=== PATIENT | male | born 1970 | race Caucasian/White ===

== ENCOUNTER 2023-12-10 22:34 | Inpatient (IN) | payer OTHER, SELFPAY ==
[2023-12-10] VITALS (9 sets, daily range): BP systolic 121–152; BP diastolic 65–90; BMI 32.5
[2023-12-10 14:43] LABS: % Basophils 0.9 % (0-2); % Immature Granulocytes 0.3 % (0-0.5); % Lymphocytes 19.6 % (20.5-51.1); % Monocytes 4.4 % (1.7-9.3); % Neutrophils 74.8 % (42.2-75.2); Absolute Basophils 0.1 10^3/uL (0-0.2); Absolute Lymphocytes 2.5 10^3/uL (1.2-3.4); Absolute Monocytes 0.6 10^3/uL (0.1-0.6); Absolute Neutrophils 9.6 10^3/uL (1.4-6.5); Hemoglobin 17.7 g/dL (13.0-18.0); Mean Corp Hgb Conc. 33.4 g/dL (33.0-37.0); Mean Corpuscular Hgb 28.2 pg (27.0-31.0); Mean Corpuscular Volume 84.5 fL (80.0-94.0); Mean Platelet Volume 10.6 fL (7.4-10.4); Nucleated Red Blood Cells % 0 % (-); Platelet Count 298 10^3/uL (130-400); Red Blood Cell Count 6.27 10^6/uL (4.70-6.10); Red Cell Dist. Width 13.6 % (11.5-14.5); White Blood Cell Count 12.9 10^3/uL (4.8-10.8)
[2023-12-10 14:59] LABS: ALT (SGPT) 34 U/L (0-50); AST (SGOT) 41 U/L (17-59); Albumin 5.3 g/dl (3.5-5.0); Alkaline Phosphatase 109 U/L (38-126); Blood Urea Nitrogen 15 mg/dl (9-20); Calcium 9.7 mg/dl (8.4-10.2); Carbon Dioxide 17 mmol/L (22-30); Chloride 105 mmol/L (98-107); Glucose 88 mg/dl (70-99); Sodium 143 mmol/L (135-145); Total Bilirubin 0.6 mg/dl (0.2-1.3); Total Protein 8.2 g/dl (6.3-8.2); eGFR > 60.00
[2023-12-10 15:00] LABS: Potassium 4.3 mmol/L (3.5-5.1)
[2023-12-10 15:08] LABS: Alcohol 309 mg/dl
[2023-12-10] MEDS: ATIVAN 2 MG IV (15:22)
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
[2023-12-10] MEDS: NSS 1000 IV ×2 (19:05→23:55)
[2023-12-10] MEDS: ATIVAN 1 MG PO (20:18)
--- NOTE | 2023-12-10 22:04 | HPS.HSE ---
Addendum entered and electronically signed by Rodrigo Deluna MD 12/11/23 00:30:
Laboratory Tests
12/10/23
22:46
B-Hydroxybutyrate 1.36 H
Likely alcohol related ketoacidosis woth associated AG MA
- IVF
Original Note:
Family Physician
-
Family Physician: * NONE
Chief Complaint
-
AMS, ETOH intoxication
History of Present Illness
HPI
53M HX ETOH user, claimed sober for last 4 yrs pw recent binge drinking.
He was BiB EMS from the Hotel
Hotel staff found him unconscious , surrounded by many empty bottles of liquir in the room
EMS was called and the patient is running naked through the hallways
At ER
He is lert but refusing to answer questions.
Nursing staff was able to speak with patient's who is currently in [place], states that he has been sober for approximately 40 years, uncertain how long this alcohol binge has been ongoing.
At ER he received:
Lorazepam 2mg + 2mg + 1mg + 1mg
IV NS, IV Thiamine and D5NS
and he is still tachycardic
Per patient and Spouse on my interview
He came to [facility] from [place] for business trip
Arrived on 12/08/23 and starts drinking for no apparent reason
He has been sober for last 40 yrs
He missed the flight today
Medical History
Past Medical History
Past Medical History: Reports Other (ETOH use disorder )
Past Surgical History: Reports Other
Social History
Alcohol: Binge drinker
Family History
Family History: Not pertinent
Allergies / Home Medications
Allergies reflects when Allergies were last updated in Office Center.
Home Medications with original date entered in Office Center
Allergy/Medication List:
Allergies
Allergy/AdvReac Type Severity Reaction Status Date / Time
No Known Allergies Allergy Unverified 12/10/23 15:52
If medication reconciliation has not been performed, why?: Medication List N/A
Review of Systems
-
Constitutional: Reports No Symptoms
EENT: Reports No Symptoms
Respiratory: Reports No Symptoms
Cardiac: Reports No Symptoms
Abdomen/GI: Reports No Symptoms
: Reports No Symptoms
Musculoskeletal: Reports No Symptoms
Skin: Reports No Symptoms
Neurological: Reports No Symptoms
Endocrine: Reports No Symptoms
Hematologic/Lymphatic: Reports No Symptoms
Psych: Reports See HPI
Physical Exam
Vital Signs
Vital Signs
Temp Pulse Resp BP Pulse Ox
99.0 F 118 21 121/65 97
12/10/23 14:20 12/10/23 21:45 12/10/23 21:45 12/10/23 21:48 12/10/23 17:15
Physical Exam
General: Well Developed, Well Nourished, No Apparent Distress, Comfortable and Conversant; No Appears in Distress
HEENT: NormoCephalic, Anicteric and Moist mucous membranes (dry OM )
Respiratory: Clear; No Wheezes, Rales or Rhonchi
Cardiac: S1/S2, Regular Rhythm and Tachycardia; No Murmur
Breast: Deferred by me
GI: Soft, Non Tender, Non Distended and Normal Bowel Sounds
Rectal: Deferred by Provider
Genito-urinary: Deferred by me
Musculoskeletal: No Cyanosis and No Edema
Neuro: AO x 3
Psych: Calm; No Confused or Agitated
Laboratory Results
-
12/10/23 14:37
12/10/23 14:37
Laboratory Results
Total Bilirubin 0.6 mg/dl (0.2-1.3) 12/10/23 14:37
AST 41 U/L (17-59) 12/10/23 14:37
ALT 34 U/L (0-50) 12/10/23 14:37
Alkaline Phosphatase 109 U/L (38-126) 12/10/23 14:37
Data Reviewed
-
Lab Data: Labs Reviewed by me
Impression/Plan
-
Reviewed VS: afebrile Tachycardic 120s BP 120/65- 140/90 RR21 POx hi 90s
Data
WCC 12.9
Na 143 Cl 105 CO2 17 Alb 5.3
AG MA 21
Pending BHB
ETOH 309
NO prior hospitalist admission:
Rx list not available
ASSESSMENT & PLAN
Acute ETOH intoxication with acute behavioral disruption
Binge ETOH relapse drinking of unclear chronicity
Associate tachycardia concerning for acute ETOH WDS vs. Non adherence with BB during binge ETOH and BB withdrawal
Associated AG MA
nl LFTs
Reported sober for 40 yrs per spouse
- check BHB
- Acute ETOH WD protocol with IV Ativan
- If he evolves into full DTs - will initiate PHB protocol
- Resume Metoprolol tartrate 12.5mg BID and f/u HR
- Psych consult
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
He came to [facility] for business trip on Wednesday12/06/23
Arrived on 12/08/23 and starts drinking for no apparent reason
He has been sober for last 40 yrs
He missed the flight today
Essential HTN on Metoprolol - dose uncertain - will initiate 12.5 mg BOD
Reported HX severely hi calcium score suspected CAD
No prior Card cath
No prior FL
No prior stent HX
- on DAPL
Depression on Escitalopram 10mg daily
- cont Escitalopram
DVT Px: LMWH
Code: Full
IP TLM
[2023-12-10 22:45] LABS: Glucose - Point of Care 100 mg/dl (70-99)
[2023-12-10] MEDS: D5/0.9% SODIUM CHLORIDE 500 IV (22:54)
[2023-12-10] MEDS: ATIVAN 1 MG IV (22:58)
[2023-12-10] MEDS: THIAMINE INJECTION 100 MG IV (23:02)
--- NOTE | 2023-12-10 23:16 | EDRN ---
Lynn [phone]
[2023-12-10 23:17] LABS: B-Hydroxybutyrate 1.36 mmol/L (0.02-0.27)
--- NOTE | 2023-12-10 23:20 | PTCARENOTE ---
patient arrived to [facility] from ED via stretcher. patient is calm and cooperative, oriented to self and place but appears detached from time and situation. drowsy and falling asleep quickly during conversation although easily arousable. patient
states they feel shaky but otherwise OK. MSAS protocol in place. patient assisted to bed and oriented to room and call palm use. patient placed on tele monitor and IVF infusing per order. care on going.
[2023-12-10] MEDS: LOPRESSOR 12.5 MG PO (23:49)
[2023-12-10 23:57] LABS: GGTP 48 U/L (15-73)
[2023-12-11] MEDS: ATIVAN 1 MG PO ×6 (00:49→11:39)
[2023-12-11 02:59] LABS: Amphetamines Negative (Negative); Barbiturates Negative (Negative); Benzodiazepines Positive (Negative); Buprenorphine Negative (Negative); Cocaine Negative (Negative); Marijuana Positive (Negative); Methadone Negative (Negative); Methamphetamines Negative (Negative); Opiates Negative (Negative); Phencyclidine Negative (Negative); Tricyclic Antidepressants Negative (Negative)
[2023-12-11 03:06] VITALS: BP 129/87
[2023-12-11 03:53] LABS: Fentanyl, Urine Negative (Negative)
[2023-12-11 07:15] VITALS: BP 130/85
[2023-12-11] MEDS: LEXAPRO 10 MG PO (07:32)
[2023-12-11] MEDS: THIAMINE INJECTION 200 MG IV ×3 (07:34→23:29)
[2023-12-11] MEDS: PROTONIX 20 MG PO (07:35)
[2023-12-11] MEDS: PLAVIX 75 MG PO (07:35)
[2023-12-11] MEDS: LOW STRENGTH ASPIRIN 81 MG PO (07:35)
[2023-12-11] MEDS: FOLVITE 1 MG PO (07:49)
[2023-12-11] MEDS: LOPRESSOR 12.5 MG PO ×2 (07:49→20:45)
--- NOTE | 2023-12-11 08:09 | W.PN.HOSP.TC ---
Today's Communication/Plan
-
see bold
Assessment / Plan
Assessment / Plan
Gen: NAD, AAOx3.
Eyes: EOMI, PERRLA, no scleral icterus.
Neck: supple.
CV: tachycardic, reg rhythm, +S1/S2, no m/r/g.
Resp: CTAB, no rales, wheezes, or rhonchi.
Abd: +BS, soft, NT, ND
Skin: No rashes.
Neuro: CN 2-12 intact, non-focal, mild tremor.
Psych: appears moderately anxious
Acute ETOH intoxication with acute behavioral disruption, now with DTs:
-with AG met acidosis like due to alcoholic ketoacidosis
-cont IVFs/thiamine/folate, MSAS protocol. Has received multiple doses of Ativan.
-start phenobarbital taper for acute DTs
-tachycardia improving
-check CMP
Other problems:
Obesity due to excess calories
Essential HTN: cont BB
Suspected CAD based on coronary calcium score: No prior cath/[place]/stent. Cont ASA/Plavix
Depression: cont Lexapro
FULL/Lovenox
Total time spent on today's encounter was 50 minutes which included time spent in counseling the patient/family regarding diagnosis and treatment plan as listed above, goals of care, and symptom management. Case was discussed with nursing staff,
specialists, and care coordinators/case management. All labs and imaging personally reviewed by me. Remainder the time spent in detailed review of previous records, lab data, imaging, and other medical provider documentation.
Anticipated Discharge: > 48 hours
Subjective/Interval History
-
Date of Service: December 11, 2023
Pt reports anxiety/tremors/diaphoresis/VH.
Objective Data
-
Vital Signs:
Vital Signs
Temp Pulse Resp BP Pulse Ox
98.0 F 99 18 130/85 99
12/11/23 07:15 04/13/24 07:49 12/11/23 07:15 12/11/23 07:49 12/11/23 07:15
I&O
12/10/23 12/11/23 12/12/23
06:59 06:59 06:59
Intake Total 1680 / 1680
Output Total 410 / 410
Balance 1270 / 1270
[2023-12-11] MEDS: NSS 1000 IV ×3 (09:35→22:54)
[2023-12-11] MEDS: LUMINAL 97.2000000000000028 MG PO ×3 (10:03→21:05)
[2023-12-11 10:24] LABS: ALT (SGPT) 37 U/L (0-50); AST (SGOT) 52 U/L (17-59); Albumin 4.5 g/dl (3.5-5.0); Alkaline Phosphatase 82 U/L (38-126); Blood Urea Nitrogen 9 mg/dl (9-20); Calcium 9.4 mg/dl (8.4-10.2); Carbon Dioxide 23 mmol/L (22-30); Chloride 101 mmol/L (98-107); Estimated Creatinine Clearance > 125 ml/min; Glucose 124 mg/dl (70-99); Potassium 4.3 mmol/L (3.5-5.1); Sodium 130 mmol/L (135-145); Total Bilirubin 1.9 mg/dl (0.2-1.3); Total Protein 7.1 g/dl (6.3-8.2); eGFR > 60.00
[2023-12-11 11:12] VITALS: BP 148/93
--- NOTE | 2023-12-11 13:15 | CM ---
business project manager reviewed patient's chart and met with patient. patient reports that he was on a business trip in area staying at a local hotel, patient has been clean and sober for many years however patient admits to excessive alcohol intake, patient
does not feel in he needs any intervention and plans on following with supports and options when he returns to home, back to [place], patient lives with spouse in a 2 story home, patient is independent with adl's and ambulation, no dme, patient
drives, patient has a prescription plan and uses [facility], patient was admitted as self pay however patient reports he has [facility] , insurance ID # provided to admissions.
Plan; Patient to return to home with his spouse, and follow up with treatment closer to home if necessary.
[2023-12-11 14:51] VITALS: BP 135/88
[2023-12-11] MEDS: LOVENOX 40 MG SC (17:03)
[2023-12-11 19:00] VITALS: BP 146/91
[2023-12-11 23:26] VITALS: BP 136/83
[2023-12-12] VITALS (7 sets, daily range): BP systolic 135–165; BP diastolic 74–101
[2023-12-12] MEDS: NSS 1000 IV (05:16)
[2023-12-12] MEDS: ATIVAN 1 MG PO ×2 (06:12→18:40)
[2023-12-12] MEDS: COMPAZINE 5 MG IV (07:05)
[2023-12-12] MEDS: PROTONIX 20 MG PO (07:42)
[2023-12-12] MEDS: THIAMINE INJECTION 200 MG IV ×3 (07:42→23:51)
[2023-12-12] MEDS: LEXAPRO 10 MG PO (07:42)
[2023-12-12] MEDS: LOW STRENGTH ASPIRIN 81 MG PO (07:42)
[2023-12-12] MEDS: LUMINAL 97.2000000000000028 MG PO (07:42)
[2023-12-12] MEDS: PLAVIX 75 MG PO (07:42)
[2023-12-12] MEDS: FOLVITE 1 MG PO (07:43)
[2023-12-12] MEDS: LOPRESSOR 12.5 MG PO ×2 (08:13→20:00)
--- NOTE | 2023-12-12 09:12 | CM ---
Patient seen at bedside, patient indicated he had no needs for discharge. CM will continue to follow for discharge planning needs.
Plan; home with no needs at patient request
--- NOTE | 2023-12-12 10:59 | W.PN.HOSP.TC ---
Today's Communication/Plan
-
Phenobarbital taper to be cut short as patient dramatically improved and he does not drink every day.
await Labs
Assessment / Plan
Assessment / Plan
CVS: S1-S2 normal
Chest: CTA B/L
Abdomen: Soft, NT / Bowel sounds present
Extremities: No edema, normal pulses
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
Patient states that he was on a business trip and had alcohol intoxication presents to thing to do. He was sober for the past 4 years and planning to remain same. He does not use alcohol every day therefore this event was an isolated 1.
#Acute ETOH intoxication with acute behavioral disruption, no signs of active DTs at present
-with AG met acidosis like due to alcoholic ketoacidosis
-cont IVFs/thiamine/folate, MSAS protocol. Has received multiple doses of Ativan.
-Continue phenobarbital taper, but I would cannot shorten the course of the taper.
-tachycardia improved
-check CMP-Pending
# Hyponatremia check serum and urine osmolality serum cortisol TSH
Urine sodium
#Obesity due to excess calories
#Essential HTN: cont BB
#Suspected CAD based on coronary calcium score: No prior cath/AK/stent. Cont ASA/Plavix
#Depression: cont Lexapro
# Urine drug screen with marijuana
#FULL CODE
# DVT prophylaxis-Lovenox
Anticipated Discharge: 24 - 48 hours
Subjective/Interval History
-
Date of Service: December 12, 2023
Objective Data
-
Labs:
Laboratory Results
12/12/23
09:35
Sodium Pending
Potassium Pending
Chloride Pending
Carbon Dioxide Pending
BUN Pending
Creatinine Pending
Glucose Pending
Calcium Pending
Total Bilirubin Pending
AST Pending
ALT Pending
Alkaline Phosphatase Pending
Vital Signs:
Vital Signs
Temp Pulse Resp BP Pulse Ox
97.2 F 69 18 147/86 99
12/12/23 08:02 12/12/23 08:13 12/12/23 08:02 12/12/23 08:13 12/12/23 08:02
I&O
12/11/23 12/12/23 12/13/23
06:59 06:59 06:59
Intake Total 1680 / 1680 8500 / 8500
Output Total 410 / 410 6125 / 6125
Balance 1270 / 1270 2375 / 2375
[2023-12-12 11:13] LABS: ALT (SGPT) 46 U/L (0-50); AST (SGOT) 57 U/L (17-59); Alkaline Phosphatase 77 U/L (38-126); Blood Urea Nitrogen 3 mg/dl (9-20); Calcium 9.3 mg/dl (8.4-10.2); Carbon Dioxide 26 mmol/L (22-30); Chloride 101 mmol/L (98-107); Estimated Creatinine Clearance > 125 ml/min; Glucose 107 mg/dl (70-99); Potassium 3.7 mmol/L (3.5-5.1); Sodium 132 mmol/L (135-145); Total Bilirubin 1.7 mg/dl (0.2-1.3); Total Protein 6.4 g/dl (6.3-8.2); eGFR > 60.00
[2023-12-12 11:44] LABS: Magnesium 1.8 mg/dl (1.6-2.3)
[2023-12-12 12:32] LABS: Osmolality Urine 149 mOsm/kg (300-900)
[2023-12-12 12:39] LABS: Urine Sodium 57 mmol/L (30-90)
[2023-12-12 13:45] LABS: Hematocrit 40.6 % (39.0-52.0); Hemoglobin 15.1 g/dL (13.0-18.0); Mean Corp Hgb Conc. 37.2 g/dL (33.0-37.0); Mean Corpuscular Hgb 29.8 pg (27.0-31.0); Mean Corpuscular Volume 80.2 fL (80.0-94.0); Red Blood Cell Count 5.06 10^6/uL (4.70-6.10); Red Cell Dist. Width 12.8 % (11.5-14.5); White Blood Cell Count 4.7 10^3/uL (4.8-10.8)
[2023-12-12 13:57] LABS: Mean Platelet Volume 11.2 fL (7.4-10.4); Platelet Count 171 10^3/uL (130-400)
[2023-12-12 14:06] LABS: Osmolality Serum 279 mOsm/kg (275-300)
[2023-12-12 15:12] LABS: Cortisol, Random 14.1 ug/dl; TSH 1.21 uIU/ml (0.47-4.68)
[2023-12-12] MEDS: LUMINAL 64.7999999999999972 MG PO ×2 (15:34→22:39)
[2023-12-12] MEDS: LOVENOX 40 MG SC (16:58)
[2023-12-12] MEDS: MELATONIN 5 MG PO (22:39)
[2023-12-13 02:32] VITALS: BP 135/91
--- NOTE | 2023-12-13 06:29 | W.PN.HOSP.TC ---
Today's Communication/Plan
-
cont phenobarbital taper MSAS protocol
possible discharge tomorrow.
Assessment / Plan
Assessment / Plan
Physical Exam
CVS: S1-S2 normal
Chest: CTA B/L
Abdomen: Soft, NT / Bowel sounds present
Extremities: No edema, normal pulses
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
Patient states that he was on a business trip and had alcohol intoxication presents to thing to do. He was sober for the past 4 years and planning to remain same. He does not use alcohol every day therefore this event was an isolated 1.
#Acute ETOH intoxication with acute behavioral disruption, no signs of active DTs at present
-with AG met acidosis like due to alcoholic ketoacidosis, since resolved
-cont MSAS protocol
-cont phenobarbital taper as scheduled, then monitor off
-tachycardia improved
# Hyponatremia Mild stable
#Obesity due to excess calories
#Essential HTN: cont BB
#Suspected CAD based on coronary calcium score: No prior cath/[place]/stent. Cont ASA/Plavix
#Depression: cont Lexapro
# Urine drug screen with marijuana
#FULL CODE
# DVT prophylaxis-Lovenox
I spent a total of 50 minutes with the patient or on the floor. More than 50% of this time involved counseling and coordination of care.
Anticipated Discharge: Within 24 hours
Subjective/Interval History
-
Date of Service: December 13, 2023
Reports intermittent headaches nausea anxious sweaty palms. Tremors since improved
Objective Data
-
Vital Signs:
Vital Signs
Temp Pulse Resp BP Pulse Ox
97.8 F 83 16 135/91 97
12/13/23 02:32 12/13/23 02:32 12/13/23 02:32 12/13/23 02:32 12/13/23 02:32
I&O
12/11/23 12/12/23 12/13/23
06:59 06:59 06:59
Intake Total 1680 / 1680 8500 / 8500 3142 / 3142
Output Total 410 / 410 6125 / 6125 650 / 650
Balance 1270 / 1270 2375 / 2375 2492 / 2492
[2023-12-13 07:19] VITALS: BP 139/95
[2023-12-13] MEDS: LOPRESSOR 12.5 MG PO ×2 (08:16→19:57)
[2023-12-13] MEDS: LUMINAL 32.3999999999999986 MG PO ×3 (08:17→21:53)
[2023-12-13] MEDS: PROTONIX 20 MG PO (08:17)
[2023-12-13] MEDS: LEXAPRO 10 MG PO (08:17)
[2023-12-13] MEDS: PLAVIX 75 MG PO (08:17)
[2023-12-13] MEDS: FOLVITE 1 MG PO (08:17)
[2023-12-13] MEDS: LOW STRENGTH ASPIRIN 81 MG PO (08:18)
[2023-12-13] MEDS: THIAMINE INJECTION 200 MG IV ×3 (08:18→23:42)
[2023-12-13] MEDS: FLUSH (NSS) 1 FLUSH IV (08:19)
[2023-12-13 11:41] VITALS: BP 127/88
--- NOTE | 2023-12-13 12:57 | PN.CDI ---
CDI
- -
CDI:
Physician Documentation Request
Admit Date: 12/10/23 22:34
Dear Doctor Basilio,
Please review the following and provide your response in the progress notes.
Clinical Indicators:
- 12/11 PN 'Acute ETOH intoxication with acute behavioral disruption'
- 'no signs of active DTs at present'
- 'Has received multiple doses of Ativan'
- 12/09-12/11 Lorazepam x 11
- 12/10 MSAS range 2-7
If possible, please provide further specificity as outlined below:
Alcohol intoxication with delirium tremens
Alcohol intoxication with withdrawal
Other
Use of terms such as suspected, likely, concern for, or probable (associated with a specific diagnosis that is being evaluated, monitored, or treated as if it exists) are acceptable and can be coded in the inpatient setting, when documented at the
time of discharge.
Thank you,
Davide Ricardo RN
CDI Specialist
Please use your independent medical judgment in providing your response.
[2023-12-13 15:36] VITALS: BP 128/89
--- NOTE | 2023-12-13 17:11 | CM ---
Spoke with patient . Pt said at co he will Uber /lyft to hotel in [place] and possible stay with night and fly home the next day.
Pt said he had no other needed at co.
[2023-12-13] MEDS: LOVENOX 40 MG SC (18:34)
[2023-12-13 19:15] VITALS: BP 127/79
[2023-12-13] MEDS: MELATONIN 5 MG PO (21:53)
[2023-12-13 23:15] VITALS: BP 113/78
[2023-12-14 03:00] VITALS: BP 118/82
[2023-12-14 04:55] LABS: Hematocrit 45.1 % (39.0-52.0); Hemoglobin 15.6 g/dL (13.0-18.0); Mean Corp Hgb Conc. 34.6 g/dL (33.0-37.0); Mean Corpuscular Hgb 28.8 pg (27.0-31.0); Mean Corpuscular Volume 83.4 fL (80.0-94.0); Platelet Count 144 10^3/uL (130-400); Red Blood Cell Count 5.41 10^6/uL (4.70-6.10); Red Cell Dist. Width 12.6 % (11.5-14.5); White Blood Cell Count 6.2 10^3/uL (4.8-10.8)
[2023-12-14 05:27] LABS: ALT (SGPT) 56 U/L (0-50); AST (SGOT) 53 U/L (17-59); Albumin 4.4 g/dl (3.5-5.0); Alkaline Phosphatase 82 U/L (38-126); Blood Urea Nitrogen 9 mg/dl (9-20); Calcium 9.9 mg/dl (8.4-10.2); Carbon Dioxide 30 mmol/L (22-30); Chloride 94 mmol/L (98-107); Estimated Creatinine Clearance > 125 ml/min; Glucose 91 mg/dl (70-99); Potassium 3.7 mmol/L (3.5-5.1); Sodium 134 mmol/L (135-145); Total Bilirubin 1.2 mg/dl (0.2-1.3); Total Protein 7.1 g/dl (6.3-8.2); eGFR > 60.00
[2023-12-14 07:00] VITALS: BP 122/84
--- NOTE | 2023-12-14 07:57 | W.PN.HOSP.TC ---
Addendum entered and electronically signed by Dayana Ferguson MD 12/15/23 22:29:
Possible ETOH withdrawal delirium tremens on initial presentation since resolved
Original Note:
Today's Communication/Plan
-
discharge
Assessment / Plan
Assessment / Plan
Physical Exam
CVS: S1-S2 normal
Chest: CTA B/L
Abdomen: Soft, NT / Bowel sounds present
Extremities: No edema, normal pulses
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
Patient states that he was on a business trip and had alcohol intoxication presents to thing to do. He was sober for the past 4 years and planning to remain same. He does not use alcohol every day therefore this event was an isolated 1.
#Acute ETOH intoxication with acute behavioral disruption, no signs of active DTs at present
-with AG met acidosis like due to alcoholic ketoacidosis, since resolved
-MSAS protocol
-tachycardia resolved
-No significant ETOH withdrawal symptoms noted since completion phenobarbital taper
# Hyponatremia Mild stable
#Obesity due to excess calories
#Essential HTN: cont BB
#Suspected CAD based on coronary calcium score: No prior cath/[place]/stent. Cont ASA/Plavix
#Depression: cont Lexapro
# Urine drug screen with marijuana
#FULL CODE
# DVT prophylaxis-Lovenox
Medically Stable for discharge home with outpatient follow up recommendations.
Total Time Preparing Discharge ___50____ minutes including examination of the patient, summary of the hospital stay, instructions for continuing care to all relevant caregivers; and preparation of discharge records, prescriptions, and referral
forms if necessary.
Anticipated Discharge: Today
Subjective/Interval History
-
Date of Service: December 14, 2023
Seen and examined at bedside in no acute distress. Tremors resolved. Reports overall feeling well. Denies current nausea vomiting headaches. Eager to go home.
Objective Data
-
Labs:
Laboratory Results
04/16/24
04:26
WBC 6.2
Hgb 15.6
Hct 45.1
Plt Count 144
Sodium 134 L
Potassium 3.7
Chloride 94 L
Carbon Dioxide 30
BUN 9
Creatinine 0.5 L
Glucose 91
Calcium 9.9
Total Bilirubin 1.2
AST 53
ALT 56 H
Alkaline Phosphatase 82
Vital Signs:
Vital Signs
Temp Pulse Resp BP Pulse Ox
97.8 F 76 18 122/84 99
12/14/23 07:00 12/14/23 07:00 12/14/23 07:00 12/14/23 07:00 12/14/23 07:00
I&O
12/13/23 12/14/23 12/15/23
06:59 06:59 06:59
Intake Total 3142 / 3142 2880 / 2880
Output Total 650 / 650
Balance 2492 / 2492 2880 / 2880
[2023-12-14] MEDS: LOW STRENGTH ASPIRIN 81 MG PO (08:31)
[2023-12-14] MEDS: VITAMIN B1 100 MG PO (08:31)
[2023-12-14] MEDS: LEXAPRO 10 MG PO (08:31)
[2023-12-14] MEDS: PLAVIX 75 MG PO (08:31)
[2023-12-14] MEDS: LOPRESSOR 12.5 MG PO (08:31)
[2023-12-14] MEDS: FOLVITE 1 MG PO (08:31)
[2023-12-14] MEDS: PROTONIX 20 MG PO (08:31)
--- NOTE | 2023-12-14 10:47 | PN.CDI ---
CDI
- -
CDI:
Physician Documentation Request
Admit Date: 12/10/23 22:34
Dear Doctor Phyllis,
Please review the following and provide your response in the progress notes.
Clinical Indicators:
- 12/11 PN 'Acute ETOH intoxication with acute behavioral disruption'
- 'no signs of active DTs at present'
- 'Has received multiple doses of Ativan'
- 12/09-12/11 Lorazepam x 11
- 12/10 MSAS range 2-7
If possible, please provide further specificity as outlined below:
Alcohol intoxication with delirium tremens
Alcohol intoxication with withdrawal
Other
Use of terms such as suspected, likely, concern for, or probable (associated with a specific diagnosis that is being evaluated, monitored, or treated as if it exists) are acceptable and can be coded in the inpatient setting, when documented at the
time of discharge.
Thank you,
Davide Ricardo RN
CDI Specialist
Please use your independent medical judgment in providing your response.
[2023-12-14 11:00] VITALS: BP 127/78
--- NOTE | 2023-12-14 11:55 | W.DCSUMMARY ---
Discharge Summary
Discharge Data
Date of Admission: 12/10/23
Date of Discharge: 12/14/23
-
Pending Results: No
Hospital Course
53M HX ETOH user, claimed sober for last 4 yrs p/w recent binge drinking. He was BiB EMS from the Hotel. Hotel staff found him unconscious, surrounded by many empty bottles of liquor in the room. During ED evaluation, he was alert but refusing to
answer questions. Nursing staff was able to speak with patient's who was in [place], stated that he had been sober for approximately 40 years, uncertain how long this alcohol binge has been ongoing. Pt had come to [facility] from [place] for
business trip. Arrived on 12/08/23, patient started drinking for no clear reason. Acute ETOH intoxication with acute behavioral disruption. AG met acidosis likely due to alcoholic ketoacidosis, since resolved. Alcohol withdrawal symptoms resolved
over the course of hospitalization with prn ativan MSAS protocol and Phenobarbital taper. No significant withdrawal symptoms after completing phenobarbital taper, medically stable patient was discharged home with outpatient follow up
recommendations.
Discharge Plan
-
Patient Disposition: Home (Routine Discharge)
Discharge Diagnosis/Procedures: Alcohol Withdrawal, mild Hyponatremia, Obesity, Hypertension, Coronary Artery Disease, Depression
Condition: Good
Diet: Regular
Activity: As tolerated
Driving Restrictions: As prior to admission
Bathing Restrictions: None
Blood Work: Please repeat CBC and BMP with primary care provider in 1 week of discharge.
Activity Restrictions/Additional Instructions:
Please follow up with primary care provider in 1 week of discharge.
It is strongly recommended that you abstain from further Alcohol use as continued usage will likely lead to recurrence of symptoms, further worsening of your overall symptoms, and increased risk of Morbidity and even the possibility of .
Instructions: Alcohol Withdrawal (DC), Alcohol Use Disorder (DC)
Referrals:
NONE,* [Family Provider] -
Prescriptions:
Continued
clopidogrel [Plavix] 75 mg Tablet
75 mg PO DAILY
aspirin 81 mg Tablet,Chewable
81 mg PO DAILY
escitalopram oxalate [Lexapro] 10 mg Tablet
10 mg PO HS
metoprolol tartrate 25 mg Tablet
12.5 mg PO BID
Discharge Orders:
Discharge Patient (As Directed); Ordered 12/14/23
Ordered By: Dayana Ferguson
Discharge Date and Time
Discharge Date/Time: 12/14/23 13:05
Print Language: ANGOLAN
--- NOTE | 2023-12-14 11:58 | CM ---
CM reviewed chart- no dc needs noted
Discharge Disposition- home, no needs
== END 2023-12-14 13:05 | disposition home or self-care (01) | DRG 897 ==
LOC: 2 SOUTH 22:34
PROVIDERS: Hospitalist; Internal Medicine; Physician Assistant; ADMITTING PHYSICIAN Internal Medicine; ATTENDING PHYSICIAN Internal Medicine; EMERGENCY PHYSICIAN Emergency Medicine
DX: F10.231 Alcohol dependence with withdrawal delirium (principal); E87.29 Other acidosis; E87.1 Hypo-osmolality and hyponatremia; R00.0 Tachycardia, unspecified; I10 Essential (primary) hypertension; Y90.8 Blood alcohol level of 240 mg/100 ml or more; F32.A Depression, unspecified; I25.10 Atherosclerotic heart disease of native coronary artery without angina pectoris; E66.09 Other obesity due to excess calories; Z60.8 Other problems related to social environment; Z79.02 Long term (current) use of antithrombotics/antiplatelets; Z79.82 Long term (current) use of aspirin; Z68.32 Body mass index [BMI] 32.0-32.9, adult
CPT/HCPCS: 80053; 80306; 80307; 82010; 82077; 82533; 82962; 82977; 83735; 83930; 83935; 84300; 84443; 85025; 85027; 93005; 96361; 96365; 96366; 96375; 96376; 99284